=== PATIENT | female | born 1955 | race Caucasian/White ===

== ENCOUNTER 2018-08-19 09:40 | Outpatient (CLI) | payer BC ==
--- NOTE | 2018-08-19 13:01 | CT ---
CT NECK SOFT TISSUES WITH CONTRAST: DATE: 08/19/2018. HISTORY: A 62-year-old female with R59.1, lymphadenopathy, NOS. This test is indicated because had previous ultrasound of head and neck. COMPARISON: The only ultrasound available is a thyroid ultrasound from 02/21/2015. FINDINGS: Since the 2014 thyroid ultrasound, the right lobe of the thyroid gland has been resected. The left l obe remains. There are nonspecific mildly enlarged bilateral level II lymph nodes. The largest is a n approximately 1.5 x 1 x 2.5 cm right level II lymph node. The left level II lymph nodes are signif icantly smaller than this. There are mildly enlarged bilateral level IB lymph nodes. There are scat tered shotty cervical lymph nodes at other levels. For example, there is a left level IV lymph node that measures approximately 1 x 0.7 x 1.5 cm. None of the lymph nodes are necrotic or have abnormall y low attenuation. The larynx appears normal. Other than the lymphadenopathy, no significant abnorm ality is identified involving the posterior cervical, retropharyngeal, perivertebral, parapharyngeal, carotid, parotid, submandibular, candle pourer, and pharyngeal mucosal, spaces. No high-grade cervical spondylosis. There is ectasia of the ascending aorta with caliber of at least 4.5 cm. It could be larger than this more proximally, but the proximal portion was not imaged. IMPRESSION: 1. Nonspecific scattered mildly enlarged cervical lymph nodes. 2. Status post right thyroid lobectomy. 3. Ectasia of ascending thoracic aorta. POS: [facility]
== END 2018-08-19 09:41 | disposition home or self-care (01) ==
LOC: SCSCT 09:40
PROVIDERS: ATTEND Otolaryngology Plastic Surgery within the Head & Neck
DX: R59.0 Localized enlarged lymph nodes (principal); I77.810 Thoracic aortic ectasia; E89.0 Postprocedural hypothyroidism
CPT/HCPCS: 70491; 82565

== ENCOUNTER 2019-09-09 11:45 | Outpatient (CLI) | payer BC ==
--- NOTE | 2019-09-09 12:35 | RAD ---
XR Ankle Rt 3 View STANDARD INDICATION: Right ankle pain after injury on Friday night COMPARISON: None. FINDINGS: Bones: There is a 6 mm avulsion fracture from the dorsal aspect of the talar head. No additional frac ture is evident. Ankle mortise: Symmetric. Talar Dome: Intact. Subtalar joint: Normal. Visualized hindfoot: Normal. Periarticular soft tissues: Normal. IMPRESSION: 1. Avulsion fracture of the dorsal lateral aspect of the talar head. No additional fracture.
--- NOTE | 2019-09-09 12:36 | RAD ---
XR Foot Rt 3 View STANDARD INDICATION: Right foot injury last Friday COMPARISON: None. FINDINGS: Bones: Small 6 mm avulsion fracture from the dorsal medial aspect of the right talar head. 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 Lisfranc alignment: Lisfranc alignment appears within normal limits. Soft tissues: No soft tissue injury demonstrated. No radiographic foreign body demonstrated. IMPRESSION: Small avulsion fracture from the dorsal medial aspect of the right talar head.
== END 2019-09-09 11:46 | disposition home or self-care (01) ==
LOC: SCSRAD 11:45
PROVIDERS: ATTEND Family Medicine
DX: M25.571 Pain in right ankle and joints of right foot (principal); S92.151A Displaced avulsion fracture (chip fracture) of right talus, initial encounter for closed fracture; W19.XXXA Unspecified fall, initial encounter

== ENCOUNTER 2019-09-16 15:27 | Outpatient (CLI) | payer BC ==
--- NOTE | 2019-09-16 16:12 | RAD ---
Right RIBS 4 views Left RIBS 4 views Chest one view HISTORY: Chest wall injury. FINDINGS: No displaced rib fracture or pneumothorax are evident. Cardiac silhouette is upper limits of normal in size. Mediastinum is midline with aortic calcificatio n. No lobar consolidation. IMPRESSION: Atherosclerosis. No acute abnormalities are demonstrated.
== END 2019-09-16 15:28 | disposition home or self-care (01) ==
LOC: SCSRAD 15:27
PROVIDERS: ATTEND Family Medicine
DX: R07.89 Other chest pain (principal); I70.0 Atherosclerosis of aorta
CPT/HCPCS: 71111

== ENCOUNTER 2019-09-17 09:14 | Outpatient (CLI) | payer BC ==
--- NOTE | 2019-09-17 09:56 | ULT ---
US Thyroid STANDARD History: Prior thyroid removal Comparison: None. Findings: Real-time grayscale and color evaluation of the thyroid bed was performed. No residual thyr oid parenchyma is present. Normal lymph nodes. Impression: No residual thyroid parenchyma appreciated.
== END 2019-09-17 09:15 | disposition home or self-care (01) ==
LOC: SCSULT 09:14
PROVIDERS: ATTEND Internal Medicine Endocrinology, Diabetes & Metabolism
DX: C73 Malignant neoplasm of thyroid gland (principal)
CPT/HCPCS: 76536

== ENCOUNTER 2022-05-06 11:22 | Outpatient (CLI) | payer BC | END 2022-05-06 11:23 | disposition home or self-care (01) | LOC: SCSRAD 11:22 | PROVIDERS: ATTEND Family Medicine | DX: M54.6 Pain in thoracic spine (principal); M50.30 Other cervical disc degeneration, unspecified cervical region; M47.814 Spondylosis without myelopathy or radiculopathy, thoracic region; M47.812 Spondylosis without myelopathy or radiculopathy, cervical region | CPT/HCPCS: 72050; 72072 ==

== ENCOUNTER 2022-05-10 14:11 | Outpatient (CLI) | payer BC | END 2022-05-10 14:12 | disposition home or self-care (01) | LOC: SCSMRI 14:11 | PROVIDERS: ATTEND Family Medicine | DX: S19.9XXA Unspecified injury of neck, initial encounter (principal); M50.30 Other cervical disc degeneration, unspecified cervical region; M47.813 Spondylosis without myelopathy or radiculopathy, cervicothoracic region | CPT/HCPCS: 72141 ==

== ENCOUNTER 2024-11-11 14:48 | Outpatient (CLI) | payer MEDICARE, BC | END 2024-11-11 14:49 | disposition home or self-care (01) | LOC: SCSRAD 14:48 | DX: S89.92XA Unspecified injury of left lower leg, initial encounter (principal); M17.12 Unilateral primary osteoarthritis, left knee ==